=== PATIENT | female | born 1950 | race Caucasian/White ===

== ENCOUNTER → 2019-08-17 13:29 | Outpatient (CLI) | payer MEDICARE, OTHER, SELFPAY ==
[2019-08-17] MEDS: Zoledronic Acid 5 MG 100 ML 300 MG IV (14:00)
[2019-08-17 14:02] VITALS: BP 146/74; PULSE 68; RESP 16; TEMP 36.4; O2SAT 96; BMI 27.3
== END ==
PROVIDERS: Family Provider Internal Medicine; PCP Internal Medicine; Visit Provider Internal Medicine Endocrinology, Diabetes & Metabolism
DX: M85.80 Other specified disorders of bone density and structure, unspecified site (principal)
CPT/HCPCS: 96365; J7050; A4216; J3489

== ENCOUNTER → 2020-10-25 14:11 | Outpatient (CLI) | payer MEDICARE, OTHER, SELFPAY ==
[2019-08-17 14:02] VITALS: BMI 27.3
[2020-10-25 14:25] VITALS: BP 127/70; PULSE 60; RESP 16; TEMP 36.1; O2SAT 95; BMI 27.3
[2020-10-25] MEDS: 0.9% NaCl PICC Flush IV (14:27)
[2020-10-25] MEDS: Zoledronic Acid 5 MG 100 ML 300 MG IV (14:28)
[2020-10-25 14:51] VITALS: BP 122/71; PULSE 70
== END ==
PROVIDERS: PCP Internal Medicine; Referring Provider Internal Medicine Endocrinology, Diabetes & Metabolism; Visit Provider Internal Medicine Endocrinology, Diabetes & Metabolism
DX: M85.80 Other specified disorders of bone density and structure, unspecified site (principal)
CPT/HCPCS: 96365; A4216; J3489